=== PATIENT | female | born 1990 | race Two or more races ===

== ENCOUNTER 2017-11-20 18:10 | Emergency (ER) | payer SELFPAY ==
[2017-11-20 18:47] LABS: URINE HCG POC HCG POSITIVE (Negative)
[2017-11-20 18:52] LABS: BILIRUBIN,URINE NEGATIVE (NEG); CLARITY,URINE CLEAR; COLOR,URINE YELLOW; GLUCOSE,URINE NEGATIVE (NEG); NITRITE,URINE NEGATIVE (NEG); PROTEIN,URINE NEGATIVE (NEG-TRACE); UROBILINOGEN,URINE 0.2 mg/dL (0.2 mg/dL)
[2017-11-20 18:59] LABS: BACTERIA,URINE MODERATE /HPF (0-FEW); RBC,URINE 0 /HPF (0-2); SQUAMOUS EPITHELIAL CELL,UR MOD /LPF
== END 2017-11-20 19:00 | disposition home or self-care (01) ==
LOC: ER 18:10
DX: O21.9 Vomiting of pregnancy, unspecified (principal); O26.899 Other specified pregnancy related conditions, unspecified trimester; R11.0 Nausea; Z3A.00 Weeks of gestation of pregnancy not specified
CPT/HCPCS: 81001; 81025; 87086; 99284

== ENCOUNTER 2018-09-26 16:33 | Emergency (ER) | payer SELFPAY ==
[~2018-09-26] VITALS: Ht 170.2 cm; Wt 68.0 kg
[2018-09-26 16:44] VITALS: BP 135/60
--- NOTE | 2018-09-26 17:17 | PHYS DOC ---
Past Medical History Additional Past Medical Histor: cervical dysplasia (LEIGHA WILLINGHAM APRN) Past Surgical History: No Surgical History (LEIGHA WILLINGHAM APRN) Alcohol Use: None Drug Use: None (LEIGHA WILLINGHAM APRN) Adult General Chief Complaint Chief Complaint: DIARRHEA HPI HPI 28-year-old female presents to ER for complaints of 4-5 episodes of diarrhea which started today. She denies fever, nausea or vomiting, or urinary symptoms. Patient reports she was recently started on antibiotics and has been being treated for cervical dysplasia. Patient is uncertain of what antibiotic she has been on. LMP 08/27/18. She denies any vaginal symptoms. She reports she has been able to eat today denying any increase in diarrhea episodes. She denies bloody stools. He shouldn't denies recent travel. Patient denies other family members with similar illness. (LEIGHA WILLINGHAM APRN) Review of Systems Review of Systems Constitutional: Denies fever or chills. Denies fatigue Eyes: Denies change in visual acuity, redness, or eye pain [] HENT: Denies nasal congestion or sore throat [] Respiratory: Denies cough or shortness of breath [] Cardiovascular: No additional information not addressed in HPI [] GI: Denies abdominal pain, nausea, vomiting, or bloody stools : Denies dysuria or hematuria [] Musculoskeletal: Denies back pain or joint pain [] Integument: Denies rash or skin lesions [] Neurologic: Denies headache, focal weakness or sensory changes. Denies dizziness Endocrine: Denies polyuria or polydipsia [] All other systems were reviewed and found to be within normal limits, except as documented in this note. (LEIGHA WILLINGHAM APRN) Allergies Allergies Allergies Coded Allergies Type Severity Reaction Last Updated Verified No Known Drug Allergies 11/20/17 No (SAM PAULA MD) Physical Exam Physical Exam Constitutional: Well developed, well nourished, no acute distress, non-toxic appearance. [] HENT: Normocephalic, atraumatic, oropharynx moist, nose normal. [] Eyes: Pupils equal, conjunctiva normal, no discharge. [] Neck: Normal range of motion, supple Cardiovascular:Heart rate regular rhythm, no murmur [] Lungs & Thorax: Bilateral breath sounds clear to auscultation- resp. equal/nonlabored Abdomen: Bowel sounds normal, soft, no tenderness/distention or rigidity, no masses, no pulsatile masses. [] Skin: Warm, dry, no erythema, no rash. [] Back: No tenderness, no CVA tenderness. [] Extremities: No tenderness, no cyanosis, no clubbing, ROM intact, no edema. [] Neurologic: Alert and oriented X 3, normal motor function, normal sensory function, no focal deficits noted. [] Psychologic: Affect normal, judgement normal, mood normal. [] (LEIGHA WILLINGHAM APRN) Current Patient Data Vital Signs Vital Signs Date Time Temp Pulse Resp B/P (MAP) Pulse Ox O2 Delivery O2 Flow Rate FiO2 09/26/18 16:44 98.5 86 18 135/60 (85) 99 Room Air 98.5 (SAM PAULA MD) EKG EKG [] (LEIGHA WILLINGHAM APRN) Radiology/Procedures Radiology/Procedures [] (LIEGHA WILLINGHAM APRN) Course & Med Decision Making Course & Med Decision Making She was evaluated for complaints of onset of diarrhea episodes today. Patient had stable vital signs and was afebrile. Patient is currently on antibiotics and so discussed possible side effects from antibiotics. Patient denied taking any [id number] Imodium or antidiarrheal medications. Discussed with patient having no nausea and been able to drink and vital signs being stable plans were for home discharge with patient to try [id number] Imodium as needed. Also discussed use of probiotics while she remains on her antibiotics. Patient to follow-up with her doctor tomorrow to discuss ER visit. Education provided on signs and symptoms to return to ER. Discharge instructions were discussed. (LEIGHA WILLINGHAM APRN) Course & Med Decision Making This patient was seen by ELISEO. I did not see or evaluate the pt unless otherwise specified but I was available for consultation. (SAM PAULA MD) Dragon Disclaimer Dragon Disclaimer This electronic medical record was generated, in whole or in part, using a voice recognition dictation system. (LEIGHA WILLINGHAM APRN) Departure Departure Impression: Primary Impression: Diarrhea Disposition: 01 HOME, SELF-CARE Condition: STABLE Referrals: NO PCP (PCP) Patient Instructions: Diarrhea Additional Instructions: Drink plenty of fluids. You can get cqqp-tth-anoxdhy probiotics and Imodium and use as directed on container. You could be having a side effect from taking antibiotics. If symptoms persist follow-up with your doctor for reevaluation and further care. LEIGHA WILLINGHAM APRN September 26, 2018 17:17 SAM PAULA MD October 05, 2018 20:54
== END 2018-09-26 17:52 | disposition home or self-care (01) ==
LOC: ER 16:33
DX: R19.7 Diarrhea, unspecified (principal)
CPT/HCPCS: 99281